=== PATIENT | male | born 1990 | race Two or more races ===

== ENCOUNTER 2024-08-02 16:31 | Emergency (ER) | payer SELFPAY ==
[2024-08-02 16:32] VITALS: BP 166/113; PULSE 109; RESP 19; TEMP 36.9; O2SAT 95
[2024-08-02 16:51] VITALS: BP 166/113; PULSE 110
[2024-08-02] MEDS: cloNIDine HCL 0.1 MG TABLET 0.2 MG PO (16:51)
[2024-08-02] MEDS: hydrALAZINE HCL 25 MG TABLET PO (16:51)
[2024-08-02 16:54] VITALS: BMI 29.2
[2024-08-02 17:44] VITALS: BP 140/100; PULSE 103; RESP 16; TEMP 36.6; O2SAT 98
--- NOTE | 2024-08-02 17:52 | PC.NURSE ---
PT HERE FOR MED CLEARANCE DUE TO ELEVATED B/P PT IS AAOX4 AND COOPERATIVE OFFICER AT BEDSIDE
[2024-08-02 18:04] VITALS: BP 133/90; PULSE 99; RESP 18; TEMP 36.9; O2SAT 96
--- NOTE | 2024-08-02 18:10 | PD.EDADULT ---
ED General RME/HPI General Chief complaint: Medical Clearance Stated complaint: MEDICAL CLEARENCE Time Seen by Provider: 08/02/24 16:36 Arrival date/time: 08/02/24 16:31 CC: Medical clearance for hypertension HPI patient is escorted handcuffed with a PD officer. Patient denies any history of hypertension has no specific complaints. Related Data Allergies Allergy/AdvReac Type Severity Reaction Status Date / Time No Known Allergies Allergy Verified 08/02/24 16:54 Review of Systems Review of Systems Narrative Review of Systems: GEN: No fever, no chills, no weight loss EYES: No discharge, no visual changes, no pain HEENT: No ear pain, no congestion, no sore throat PULM: No shortness of breath, no cough, no congestion CV: No chest pain, no dyspnea on exertion, no palpitations GI: No nausea, no vomiting, no diarrhea, no pain, no constipation : No frequency, no urgency, no dysuria MUSC/SKEL: No joint pain, no back pain SKIN: No rash PSYCH: No hallucinations, no depression HEME/LYMPH: No easy bleeding or bruising tendencies NEURO: No weakness, no headache Past Medical History Past Medical History CARDIAC: Negative Congestive Heart Failure RESPIRATORY: Negative Chronic Obstructive Pulmonary Disease (COPD) GASTROINTESTINAL: Positive Gall Bladder Disease GENITOURINARY: Negative Renal Disease ENDOCRINE: Negative Diabetes Mellitus Type 1 or Diabetes Mellitus Type 2 PSYCHO/SOCIAL: Positive Depression Surgical History SURGICAL: Positive Adenoidectomy and Abdominal Surgery Social History SMOKING STATUS: Never smoker ED Exam Narrative Physical exam: [General: Obese not in cot no acute distress Head normocephalic HEENT: Within acceptable limits Neck is supple nontender Chest equal chest rise nontender to palpation Respiratory: Clear to auscultation no wheezes crackles or rubs CV: Rate rhythm is regular no murmurs rubs or clicks Abdomen is distended secondary to body habitus soft nontender no masses positive bowel sounds all 4 quadrants Back: No CVA tenderness no spinous process tenderness from cervical spine thoracic and lumbar spine Skin: Intact no petechiae rash induration ulceration or crepitus Extremities: Moving all extremity against resistance cap refill less than 2 seconds neurosensory intact Neuro: Awake alert oriented x3 Glascow coma 15 no focal deficits] Course Quality Measures none Orders Category Date Time Status cloNIDine HCL [Catapres] Med 08/02/24 16:36 Discontinued 0.2 mg PO X1 ONE hydrALAZINE HCL [Apresoline] Med 08/02/24 16:36 Discontinued 25 mg PO X1 ONE Vital Signs Vital signs: Vital Signs Temperature 98.4 F 08/02/24 16:32 Pulse Rate 109 H 08/02/24 16:32 Respiratory Rate 19 08/02/24 16:32 Blood Pressure 166/113 H 08/02/24 16:32 Pulse Oximetry (%) 95 08/02/24 16:32 Oxygen Delivery Method Room Air 08/02/24 16:32 [facility] Patient data External records reviewed:: [facility] previous records Clinical information provided by:: patient and law enforcement Social determinants that could affect healthcare access:: none Patient has the following chronic illnesses:: None How is presenting disease/condition affected by chronic disease/condition?: uneffected by Evaluation data The following diagnostics were reviewed and interpreted by me:: other (specify) (None) Lab and/or radiology exams considered but not ordered:: None Interpretation Summary: After medication blood pressure is 133/90 patient can be discharged to senior living Medications Medications considered but not ordered:: None Medication administrations:: Medication Administration History Discontinued Medications Clonidine (Clonidine Hcl 0.1 Mg Tablet) 0.2 mg PO X1 ONE Stop: 08/02/24 16:37 Last Admin: 08/02/24 16:51 Dose: 0.2 mg Documented By: MAVIS Hydralazine HCl (Hydralazine Hcl 25 Mg Tablet) 25 mg PO X1 ONE Stop: 08/02/24 16:37 Last Admin: 08/02/24 16:51 Dose: 25 mg Documented By: MAVIS None Consultations Consultation(s) initiated? (list below): No Diagnosis Differential Diagnosis ED Complaint MDM: Medical clearance hypertension hypertensive emergency Most likely diagnosis given after review of the tests above:: Medical clearance hypertension Admission Indicated Admission indicated?: not indicated Explain why admission is indicated or not indicated:: Stable for senior living Admission Request Was there a request for admission?: No Disposition Plan Disposition Plan: Discharge Discharge Attestation Discharge Attestation: The patient and all family members were given an opportunity to ask questions and understood the discharge instructions. Discharge instructions specifically effects, indications for sooner follow up or return to the emergency department, and the expected course of current diagnosis. Patient condition: Stable Medical Decision Making Differential Diagnosis Differential Diagnosis: Medical clearance hypertension hypertensive emergency Discharge Plan Plan Patient Disposition: HOME (Self Care) Patient condition on transfer: Stable Problem List Clinical Impression: Medical clearance for incarceration Patient/Caregiver Discharge Instructions Print Language: Greenlandic Stand Alone Forms: Deneen Award Info., Patient Portal Info Letter PA/RESISTANCE WELDER Supervising Physician PA/RESISTANCE WELDER Supervising Physician: Silvio Cerna ENP
[2024-08-02 18:17] VITALS: BP 133/90; PULSE 102; RESP 16; O2SAT 94
== END 2024-08-02 18:17 ==
LOC: SERX 19:05
PROVIDERS: Emergency Provider Emergency Medicine
DX: Z02.89 Encounter for other administrative examinations (principal); Z65.3 Problems related to other legal circumstances; I10 Essential (primary) hypertension; E66.9 Obesity, unspecified; Z68.29 Body mass index [BMI] 29.0-29.9, adult
CPT/HCPCS: 99282; A9270